=== PATIENT | male | born 1990 | race Caucasian/White ===

== ENCOUNTER 2017-03-17 10:08 | Outpatient (CLI) ==
--- NOTE | 2017-03-17 10:33 | DI ---
EXAM: CHEST FRONTAL AND LATERAL VIEWS HISTORY: Cough. COMPARISON: None FINDINGS: Heart size and mediastinal contour within normal limits. No acute infiltrates. Normal vascularity with no pleural fluid or pneumothorax. The bony thorax has no acute finding. IMPRESSION: No acute process.
== END 2017-03-17 10:09 | disposition home or self-care (01) ==
LOC: LAB 10:08
PROVIDERS: ATTEND Physician Assistant
DX: R68.89 Other general symptoms and signs (principal); R11.0 Nausea; R00.2 Palpitations; R05 Cough
CPT/HCPCS: 36415; 80053; 82150; 83690; 85025; 93005; 93010